=== PATIENT | female | born 2005 | race Caucasian/White ===

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

== ENCOUNTER 2023-08-15 13:28 | Outpatient (AMB) | payer OTHER, SELFPAY ==
--- NOTE | 2023-08-15 13:30 | MHC.PC.OV ---
Vital Signs 08/15/23 13:35 Height 5 ft 5 in Weight 144 lb 2 oz BMI 24.0 BP 122/78 Blood Pressure Location Rt brachial Position Sitting Pulse 105 H Pulse Source Pulse Oximeter Pulse Oximetry (%) 100 Oxygen Delivery Method Room Air Intake Visit Reasons: New patient-Requesting physical Allergies fentanyl Allergy (Intermediate, Verified 08/15/23 13:36) UNKNOWN Medication List - Last Reconciled 08/15/23 by Dominga Cottrell MD norgestimate-ethinyl estradiol 0.18/0.215/0.25 mg-35 mcg (28) (Tri-Sprintec (28)) 1 tab PO DAILY Tobacco use date assessed: 08/15/23 Dental Screening Dental Screen Date: 08/15/23 Did you have a dental visit in the last 12 months?: Yes Did you have a dental problem in the last 6 months where you did not have access to dental care?: No Was dental information given to patient?: Patient has dentist HPI New patient-Requesting physical HPI Details Patient physical exam Offer no complaints In need of new OBGYN, patient is taking control pills Does not want to do any labs, discussed side effect of control briefly it is recommended that we have baseline labs when patient is taking any medications Patient is afraid of needles and do not want any labs. Has developed small patch of rash right side of leg and left groin area 2 weeks ago which seems to be Wing and it is non pruritic. Patient says that she will get back to me if rash started to spread. We will prescribe Lotrisone cream if it did get better [facility] Social History Housing: Apartment Patient Tobacco Use Status: Never used Tobacco e-Cigarette/Vaping Use: Currently Using service: No Current occupational status: student Cognitive needs: No Hearing needs: No Vision needs: No Questionnaire PHQ-9 Over the last 2 weeks, how often have you been bothered by any of the following problems? 1. Little interest or pleasure in doing things: several days 2. Feeling down, depressed, or hopeless: not at all 3. Trouble falling or staying asleep, or sleeping too much: not at all 4. Feeling tired or having little energy: several days 5. Poor appetite or overeating: not at all 6. Feeling bad about yourself - or that you are a failure or have let yourself or your family down: not at all 7. Trouble concentrating on things, such as reading the newspaper or watching television: not at all 8. Moving or speaking so slowly that other people could have noticed. Or the opposite - being so fidgety or restless that you have been moving around a lot more than usual: not at all 9. Thoughts that you would be better off or of hurting yourself in some way: not at all Total score: 2 Depression Screening Interpretation: Negative Depression Screening Done: Yes 96774 - PHQ-9 Billing: Yes Source: Developed by Drs. Pierre Pérez, Shraddha Duran, Raúl Malave and colleagues, with an educational giles from [employer]. Thrive Questionnaire Date Thrive assessed: 08/15/23 I am a: Patient What is your living situation today?: I have a steady place to live Within the past 12 months, did the food you bought not last and you didn't have the money to get more?: Never true Within the past 12 months, did you worry whether your food would run out before you got money to buy more?: Never true Do you have trouble paying for medicines?: No Do you have trouble getting transportation to medical appointments?: No Do you have trouble paying your heating and electricity bill?: No Do you have trouble taking care of your child, family member or friend?: No Do you have trouble with day-to-day activities such as bathing, preparing meals, shopping, managing finances, etc.?: No Are you currently unemployed and looking for a job?: Yes Are you interested in more education?: Yes AUDIT C Alcohol Use Questionnaire (AUDIT-C) 1. How often do you have a drink containing alcohol?: Monthly or less 2. How many drinks containing alcohol do you have on a typical day when you are drinking?: 1 or 2 3. How often do you have six or more drinks on one occasion?: Never Total Score: 1 Score Reviewed/Action Taken: Yes FILIBERTO-7 AMB Questionnaire FIILBERTO-7 Date FILIBERTO - 7 assessed: 08/15/23 Feeling nervous, anxious, or on edge: 1 = Several days Not being able to stop or control worryin = Not at all Worrying too much about different things: 1 = Several days Trouble relaxin = Not at all Being so restless that it is hard to sit still: 0 = Not at all Becoming easily annoyed or irritable: 1 = Several days Feeling afraid as if something awful might happen: 0 = Not at all Total FILIBERTO-7 score (0-4 normal; 5-9 mild; 10-14 moderate; 15-21 severe): 3 Source: Developed by Drs. Pierre Pérez, Shraddha Duran, Raúl Malave and colleagues, with an educational giles from [employer]. FILIBERTO-7 Assessment Billing FILIBERTO-7 Assessment Tool: FILIBERTO-7 Assessment 81241 Review of Systems Const Denies chills, Denies fever(s) and Denies headache(s) Eyes Denies blurry vision ENT Denies headache(s), Denies nasal discharge, Denies nasal obstruction, Denies odynophagia and Denies sinus pain Card Denies chest pain at rest and Denies chest pain with activity Resp Denies cough and Denies hemoptysis GI Denies diarrhea, Denies odynophagia, Denies vomiting and Denies hematemesis Reports as per HPI Musc Denies abnormal gait Skin/Breast Reports as per HPI Neuro Denies Neuro-related abnormal movements, Denies Abnormal speech present, Denies abnormal gait, Denies headache(s) and Denies Sensory deficit (Neuro) Psych Denies mood swings and Denies paranoia Endo Reports as per HPI Abiodun/Lymph Reports as per HPI Aller/Immun Reports as per HPI Physical exam (Primary Care) Vital Signs: Last Vital Signs Pulse 105 H 08/15/23 13:35 BP 122/78 08/15/23 13:35 Pulse Ox 100 08/15/23 13:35 Oxygen Delivery Method Room Air 08/15/23 13:35 BMI result Body Mass Index 24.0 Tobacco/Smoking Status: Tobacco use Status Tobacco use date assessed 08/15/23 08/15/23 13:31 Patient Tobacco Use Status Never used Tobacco 08/15/23 13:38 e-Cigarette/Vaping Use Currently Using 08/15/23 13:38 PHQ-9: PHQ-9 Score PHQ-9: Total score 2 08/15/23 14:01 Depression Screening Interpretation: Negative Thrive Assessment: Date of Thrive Assessment Date Thrive assessed 08/15/23 08/15/23 14:01 Const General: cooperative, comfortable and no acute distress Orientation/consciousness: patient oriented x3 HENMT Head: Yes normocephalic and Yes atraumatic Eyes General: appearance normal, both eyes and all related structures Pupils: Equal, round and reactive pupils present EOM: EOMs intact bilaterally Neck Neck: Yes supple and No lymphadenopathy Thyroid: Thyroid normal Lymphatic: no lymphadenopathy noted Resp Effort & Inspection: normal respiratory effort and able to speak in complete sentences Auscultation: clear to auscultation bilaterally Cardio Heart sounds: S1 normal heart sound present and S2 normal heart sound present GI Palpation (GI): Soft to palpation and nontender Auscultation: normal bowel sounds General: Yes no CVA tenderness Back/Spine/Pelvis Back: no CVA tenderness Skin General skin exam: elasticity normal and turgor normal Full body images: 1. 1 in x 1 in patchy rash right side of thigh 2. 2 cm by 1 cm scaly rash left groin without any signs of infection or inflammation Neuro General: patient oriented x3 and gait normal Cranial nerves: Yes Equal, round and reactive pupils present Speech: No Abnormal speech present Sensory Exam: No Sensory deficit (Neuro) Coordination: tandem gait normal and Romberg test negative Extrem General: Yes normal exam except as noted and No edema Assessment and Plan Assessment & Plan (1) Encounter for general adult medical examination with abnormal findings: Code(s): Z00.01 - Encounter for general adult medical examination with abnormal findings (2) Rash: Code(s): R21 - Rash and other nonspecific skin eruption (3) Uses control: Code(s): Z78.9 - Other specified health status Orders: Referrals DEFECT CUTTER Referral Z01.419 - Encounter for gynecological examination (general) (routine) without abnormal findings, Z78.9 - Other specified health status Coding Level of Care Code New Pt Prev Care 18-39yr(55508 Diagnoses Encounter for general adult medical examination with abnormal findings Z00.01 Rash R21 Uses control Z78.9 Additional Codes FILIBERTO-7 Assessment Billing - FILIBERTO-7 Assessment Tool: FILIBERTO-7 Assessment [id number] ([id number])
[2023-08-15 13:35] VITALS: BP 122/78; PULSE 105; O2SAT 100; BMI 24.0
== END 2023-08-15 15:14 | disposition home or self-care (01) ==
PROVIDERS: Visit Provider Internal Medicine
DX: Z00.01 Encounter for general adult medical examination with abnormal findings (principal); R21 Rash and other nonspecific skin eruption; Z78.9 Other specified health status
CPT/HCPCS: 99385

== ENCOUNTER 2023-10-24 06:36 | Outpatient (REF) | payer OTHER, SELFPAY ==
[2023-10-24 06:56] LABS: MANUAL DIFF FLAG NO
[2023-10-24 06:59] LABS: Basophils Percent Auto 0.5 % (0-2); Eosinophils Absolute Auto 0.1 X10*3/uL (0.0-0.4); Eosinophils Percent Auto 1.9 % (0-4); Hematocrit 40.7 % (37.0-47.0); Hemoglobin 13.1 g/dl (12.0-16.0); Imm Gran Abs Auto 0.01 X10*3/uL (0.00-0.03); Imm Gran Pct Auto 0.1 % (0.0-0.4); Lymphocytes Absolute Auto 2.3 X10*3/uL (1.2-4.9); Lymphocytes Percent Auto 31.2 % (20-40); Mean Corpuscular HGB Conc 32.2 g/dl (31.0-35.0); Mean Corpuscular Hemoglobin 28.1 pg (27.0-33.0); Mean Corpuscular Volume 87.3 fL (80.0-98.0); Mean Platelet Volume 9.3 fL (9.4-12.3); Monocytes Absolute Auto 0.7 X10*3/uL (0.1-1.2); Monocytes Percent Auto 9.2 % (2-11); Neutrophils Absolute Auto 4.2 x10*3/uL (2.0-8.3); Neutrophils Percent Auto 57.1 % (45-73); Platelet Count 337 X10*3/uL (160-400); Red Blood Count 4.66 X10*6/uL (4.20-5.50); Red Cell Distribution Width 12.6 % (11.0-16.0); White Blood Count 7.4 X10*3/uL (4.8-10.8)
[2023-10-24 07:19] LABS: Alanine Aminotransferase 27 U/L (0-31); Albumin Level 4.4 g/dL (3.5-5.0); Alkaline Phosphatase 73 U/L (39-117); Anion Gap 16 (12-20); Aspartate Amino Transferase 19 U/L (5-31); Bilirubin Total 0.3 mg/dL (0.0-1.0); Blood Urea Nitrogen 15 mg/dL (9-16); Calcium 9.9 mg/dL (8.4-10.2); Carbon Dioxide 26 mmol/L (22-29); Chloride 107 mmol/L (96-108); Estimated Glomerular Filt Rate > 60; Glucose Random 90 mg/dL (60-115); Potassium 4.6 mmol/L (3.3-5.1); Sodium 144 mmol/L (135-145); Total Protein 7.9 g/dL (6.5-8.0)
== END 2023-10-24 06:37 | disposition home or self-care (01) ==
LOC: HO.LAB 06:36
PROVIDERS: PCP Internal Medicine; Visit Provider Internal Medicine
DX: Z78.9 Other specified health status (principal)
CPT/HCPCS: 36415; 80053; 85025

== ENCOUNTER 2024-02-02 14:51 | Outpatient (AMB) | payer OTHER, SELFPAY ==
[2024-02-02 15:01] VITALS: BP 112/74; BMI 23.8
--- NOTE | 2024-02-02 15:01 | MHC.OFFVIS ---
Intake Vital Signs 02/02/24 15:01 Height 5 ft 5 in Weight 143 lb BMI 23.8 BP 112/74 Intake Visit Reasons: New patient Annual Intake Note: Dr. Cottrell doesn't want to prescribe BC pills and referred patient to us to keep refilling. Patient states she doesn't need any STD testing she states she had STD testing at her school since they have a clinic accessible to students. Manager Audit Required: No Information Interpreted: non-clinical & clinical Garbage Collector Supervisor: Garbage Collector Supervisor Present (Rolly) Allergies fentanyl Allergy (Intermediate, Verified 02/02/24 15:03) UNKNOWN Medication List - Last Reconciled 02/02/24 by Shannon Leal CNM norgestimate-ethinyl estradiol 0.18/0.215/0.25 mg-35 mcg (28) (Tri-Sprintec (28)) 1 tab PO DAILY Is last menstrual period known: Yes Last menstrual period: 01/25/24 Post menopausal: No HPI New patient Annual HPI Details Patient is here scheduled for her 1st safety equipment testing specialist annual exam however she did not quite realize that it was a safety equipment testing specialist annual exam and she is nervous and does not think she needs an exam. She says she got tested at her school at [facility] just 2 weeks ago for gonorrhea and chlamydia and other things. She started on control pills when she was 13 years old at [facility] Dr. Petty Young. She is not sure about what vaccine she had says her mother has all those records but she does know on questioning that she did get the sex disease vaccine. She has 1 partner she alluded to the fact that she does not always use condoms. She does vape but she is trying to quit. She feels she is healthy otherwise and does not feel she needs an exam today. [facility] Surgical History (Updated 02/02/24 @ 15:04 by ROSALIA Petersen) Hx of heart surgery Social History Housing: Apartment Patient Tobacco Use Status: Never used Tobacco e-Cigarette/Vaping Use: Currently Using service: No Current occupational status: student Cognitive needs: No Hearing needs: No Vision needs: No Female Reproductive History Menstrual Age of Menarche: 11 Duration of menses: 3-5 days Date of last menstrual period: 01/25/24 control method: pills Total pregnancies: 0 Physical Exam Vital Signs: BMI result Body Mass Index 23.8 Const Other: Deferred as patient feels she does not need 1 today and has no health concerns today she just wants her control pills. Education done about what to expect that her next and 1st safety equipment testing specialist exam and Pap smear after she turns 19. Assessment & Plan Assessment & Plan (1) Uses control: Code(s): Z78.9 - Other specified health status (2) Well woman exam (no gynecological exam): Comment: Full teaching about self-care control pills STI eyes and prevention done at this visit including what to expect a future safety equipment testing specialist exam and 1st Pap smear next year. Code(s): Z00.00 - Encounter for general adult medical examination without abnormal findings (3) BCP ( control pills) initiation: Comment: Actually it is a continuation of her pills that she has been on per her conservation science teacher and then primary care provider we will continue the prescription from here with three-month refills for year. Code(s): Z30.011 - Encounter for initial prescription of contraceptive pills (4) Cervical cancer screening: Comment: We will be due for her 1st Pap smear after she turns 19 pelvic exam deferred to then. Patient believes she had the Gardasil series at [facility]. Code(s): Z12.4 - Encounter for screening for malignant neoplasm of cervix Plan -----Discussed in this visit the following: healthy balanced diet, regular and consistent exercise, getting recommended health screens, doing the best she can for her particular health concerns, kegel exercises, pap smear screening and followup recommendations, mammography screening and SBE, normal changes in cycles in her life stage--- . Reviewed full teaching for her life stage including that her 1st Pap smear will be next year after she turns 19 but that any time she is concerned about infection or discharge that would be a time to have a vaginal exam but she can deferred if she has no concerns she has gotten tested for STDs at her college as recently as 2 weeks ago and says everything was good I reviewed other testing for STIs that are commonly tested for as well as prevention with safer sex and discussed strategies for having her partner use condoms including can use the excuse of a missed pill certainly it would be good to use condoms if she ever does thinks she misses a pill and certainly absolutely if she missed 2 pills in a row. She used to have to get the per pills every month at her pharmacy but recently it was 3 months and that is much preferable will absolutely send the prescription for 3 month supply at a time with 4 refills. She can not always get home from [place] to apple picker the prescriptions and that has sometimes caused her to run out of pills in the past. In addition teaching done and discussed about HPV virus and Pap smear testing Also discussed the control pills and that all is not yet known about what ever it may be in vape canisters at this time and can not tell what risks there would be compared to smoking but I do recommend stopping if she can and perhaps she will have stop by the next time she comes in discussed the risks of blood clots and signs and symptoms and what to do if that ever happened. Also she goes to the gym every day and she tries to eat well and maintain good health.. Medications: Refilled norgestimate-ethinyl estradiol 0.18/0.215/0.25 mg-35 mcg (28) (Tri-Sprintec (28)) 1 tab PO DAILY 84 tabs 4RF Coding Level of Care Code New Pt Prev Care 18-39yr(23276 Diagnoses Uses control Z78.9 Well woman exam (no gynecological exam) Z00.00 BCP ( control pills) initiation Z30.011 Cervical cancer screening Z12.4
== END 2024-02-02 17:01 | disposition home or self-care (01) ==
PROVIDERS: PCP Internal Medicine; Visit Provider Advanced Practice Midwife
DX: Z01.419 Encounter for gynecological examination (general) (routine) without abnormal findings (principal)
CPT/HCPCS: 99385

== ENCOUNTER → 2024-02-02 14:51 | Outpatient (BNVA) | payer OTHER, SELFPAY | PROVIDERS: PCP Internal Medicine; Visit Provider Advanced Practice Midwife ==

== ENCOUNTER 2024-12-19 11:16 | Outpatient (REF) | payer OTHER, SELFPAY ==
--- OUTSIDE RECORDS SUMMARY | 2024-12-19 14:40 | XMS_ITS | Encounter Summary ---
Author Organization [facility] Address [address] [place] [address] Phone Care Team Providers Care Boot Trimmer Name Role Phone Ankita Juárez MD Primary Care Provider [phone]- [phone] Reason for Visit * Reason Comments Med Refill Encounter Details Date Type Department Care Team (Late st Contact Info) Description 03/18/2022 Refill [facility] [place] [address] [place] [address] Ankita Juárez MD [address] [place] [address] Oral contraceptive pill surveillance Social History Tobacco [...] OCPs, but encouraged her to establish with PERSONAL FINANCIAL COUNSELOR. I called pharmacy who reports that pt [...] surveillance documented in this encounter Care Teams Boot Trimmer Relationship Specialty Start Date End Date Ankita Juárez MD [address] [place] [address] [place] [address] PCP - General Pediatrics 05/06/18 08/28/23 documented as of this encounter
--- OUTSIDE RECORDS SUMMARY | 2024-12-19 14:40 | XMS_ITS | Encounter Summary ---
Author Organization [facility] Address [address] [place] [address] Phone Care Team Providers Care Motor Adjuster Name Role Phone Ankita Juárez MD Primary Care Provider [phone]- [phone] Reason for Visit * Reason Comments Med Refill Encounter Details Date Type Department Care Team (Late st Contact Info) Description 01/22/2021 Refill [facility] [place] [address] [place] [address] Ankita Juárez MD [address] [place] [address] Oral contraceptive pill surveillance Social History Tobacco [...] surveillance documented in this encounter Care Teams Motor Adjuster Relationship Specialty Start Date End Date Ankita Juárez MD [address] [place] [address] [place] [address] PCP - General Pediatrics 05/06/18 08/28/23 documented as of this encounter
--- OUTSIDE RECORDS SUMMARY | 2024-12-19 14:40 | XMS_ITS | Encounter Summary ---
Author Organization [facility] Address [address] [place] [address] Phone Care Team Providers Care Balancer Scale Name Role Phone Ankita Juárez MD Primary Care Provider +1- [phone] Reason for Visit * Reason Comments Med Refill Encounter Details Date Type Department Care Team (Late st Contact Info) Description 06/05/2022 Refill [facility] - [address] [address] Yesika Ann NP Oral contraceptive pill surveillance [...] surveillance documented in this encounter Care Teams Balancer Scale Relationship Specialty Start Date End Date Ankita Juárez MD 150 [facility] [place] [address] PCP - General Pediatrics 05/06/18 08/28/23 documented as of this encounter
--- OUTSIDE RECORDS SUMMARY | 2024-12-19 14:40 | XMS_ITS | Encounter Summary ---
Author Organization [facility] Address [address] [place] [address] Phone Care Team Providers Care Claim Representative Name Role Phone Ankita Juárez MD Primary Care Provider [phone] Encounter Details Date Type Department Care Team (Late st Contact Info) Description 06/04/2013 Documentation [facility] [place] [address] [place] [address] Family Medicine, Physician [address] [place] [address] Social History Tobacco Use Types Packs/Day Years [...] on filedocumented in this encounter Care Teams Claim Representative Relationship Specialty Start Date End Date Ankita Juárez MD 150 [place] [address] PCP - General Pediatrics 05/06/18 08/28/23 documented as of this encounter
--- OUTSIDE RECORDS SUMMARY | 2024-12-19 14:40 | XMS_ITS | Encounter Summary ---
Author Organization [facility] Address [address] [place] [address] Phone Care Team Providers Care Fan Balancer Name Role Phone Ankita Juárez MD Primary Care Provider [phone]- [phone] Reason for Visit * Reason Comments Med Refill Encounter Details Date Type Department Care Team (Late st Contact Info) Description 04/15/2021 Refill [facility] [place] [address] [place] [address] Lorraine Gee MD [address] [place] [address] Oral contraceptive pill surveillance Social History Tobacco [...] 10:54 AM EDT Script sent. Had recent [facility]. PPP * Telephone Encounter - Sonido Dorado LPN - 04/15/2021 10:19 AM EDT [facility] is requesting a refill on control. Last PE was 02/11/21 documented in this encounter Plan of Treatment Not on file documented as of this encounter Visit Diagnoses Diagnosis Oral contraceptive pill surveillance documented in this encounter Care Teams Fan Balancer Relationship Specialty Start Date End Date Ankita Juárez MD [address] [place] [address] [place] [address] PCP - General Pediatrics 05/06/18 08/28/23 documented as of this encounter
--- OUTSIDE RECORDS SUMMARY | 2024-12-19 14:40 | XMS_ITS | Encounter Summary ---
Author Organization [facility] Address [address] [place] [address] Phone Care Team Providers Care Residential Substance Abuse Counselor Name Role Phone Ankita Juárez MD Primary Care Provider [phone] Reason for Visit * Reason Comments Med Refill Encounter Details Date Type Department Care Team (Late st Contact Info) Description 02/19/2020 Refill [facility] [place] [address] [place] [address] Ankita Juárez MD [address] [place] [address] Oral contraceptive pill surveillance Social History Tobacco [...] surveillance documented in this encounter Care Teams Residential Substance Abuse Counselor Relationship Specialty Start Date End Date Ankita Juárez MD [address] [place] [address] [place] [address] PCP - General Pediatrics 05/06/18 08/28/23 documented as of this encounter
--- OUTSIDE RECORDS SUMMARY | 2024-12-19 14:40 | XMS_ITS | Encounter Summary ---
Author Organization [facility] Address [address] [place] [phone] Phone Care Team Providers Care Launch Engineer Name Role Phone Ankita Juárez MD Primary Care Provider [phone] Encounter Details Date Type Department Care Team (Late st Contact Info) Description 11/21/2010 Documentation [facility] [place] Family Medicine [address] [place] [address] Family Medicine, Physician [address] [place], [place] [id number] Social History Tobacco Use Types Packs/Day Years [...] on filedocumented in this encounter Care Teams Launch Engineer Relationship Specialty Start Date End Date Ankita Juárez MD [address] [facility] [place] [address] PCP - General Pediatrics 05/06/18 08/28/23 documented as of this encounter
--- OUTSIDE RECORDS SUMMARY | 2024-12-19 14:40 | XMS_ITS | Encounter Summary ---
Author Organization [facility] Address [address] [place] [phone] Phone Care Team Providers Care Wire Wrapping Machine Operator Name Role Phone Ankita Juárez MD Primary Care Provider Encounter Details Date Type Department Care Team (Late st Contact Info) Description 10/04/2011 Documentation [facility] [place] Family Medicine [address] [place] [address] Family Medicine, Physician [address] [place], [place] [address] Social History Tobacco Use Types Packs/Day Years [...] on filedocumented in this encounter Care Teams Wire Wrapping Machine Operator Relationship Specialty Start Date End Date Ankita Juárez MD [address] [place] [address] PCP - General Pediatrics 05/06/18 08/28/23 documented as of this encounter
--- OUTSIDE RECORDS SUMMARY | 2024-12-19 14:41 | XMS_ITS | Encounter Summary ---
Author Organization [facility] Address [address] [place] [address] Phone Care Team Providers Care Groover Runner Name Role Phone Ankita Juárez MD Primary Care Provider Encounter Details Date Type Department Care Team (Late st Contact Info) Description 06/22/2017 Conversion Encounter [facility] [place] [address] [place], [place] [id number] Social History Tobacco Use Types Packs/Day Years [...] on filedocumented in this encounter Care Teams Groover Runner Relationship Specialty Start Date End Date Ankita Juárez MD [address] [place] [address] PCP - General Pediatrics 05/06/18 08/28/23 documented as of this encounter
--- OUTSIDE RECORDS SUMMARY | 2024-12-19 14:41 | XMS_ITS | Clinical Summary ---
Author Organization [facility] Address [address] [place] [phone] Phone Care Team Providers Care Computer Applications Engineer Name Role Phone Unavailable Primary Care Provider [...] Elevated cholesterol, No family history of Sudden /[place] under age 55 Sister Ben (twin) Alive [...] Completed 02/08/2022, 02/11/2021 Procedures * Due to [place] [employer] law, this organization might not be sharing sensitive test results. Procedure Name Priority Date/Time Associated Diagnosis Comments CHLAMYDIA AND GONORRHEA, AMPLIFIED Routine 02/08/2022 10:45 AM EDT Encounter for screening examination for chlamydial infection from Last 3 Months or Most Recently Relevant to Health Maintenance Results * Due to [place] [employer] law, this organization might not be sharing sensitive test results. * Chlamydia and Gonorrhoea, Amplified (02/08/2022 10:45 AM EDT) Chlamydia Trachomatis, DNA Probe NEGATIVE (NEG) [facility] Comment: No Chlamydia Trachomatis RNA detected in this patient's sample ? (REFERENCE RANGE/NORMAL VALUE: NOT DETECTED) ? Note: This test uses braider setter- mediated amplification method to detect rRNA from C. Trachomatis URINE GC AMP PROBE NEGATIVE (NEG) [facility] Comment: No Neisseria Gonorrhoeae RNA detected in this patient's sample ? (REFERENCE RANGE/NORMAL VALUE: NOT DETECTED) ? NOTE: This test uses braider setter-mediated amplification method to detect rRNA from N.Gonorrhoeae. [...] without risk of sexual abuse. Consult the [facility] if needed. Contact phone number . Therapeutic failure or success cannot be determined with the Aptima Combo2 assay since nucleic acid may persist following appropriate antimicrobial therapy. The Centers for Disease Control and Prevention (CDC) recommends confirmatory retesting using culture or a different nucleic acid amplification test when positive results occur, if indicated. Testing performed or reported by [facility], a Service of [facility], [facility] [address] Newton Chavez MD, [employer] Former [facility]# [id number] Urine (Urine) 02/08/2022 10: 45 AM EDT 02/08/2022 3:58 PM EDT us Ankita Juárez MD LAB MICROBIOLOGY - GENERAL ORDERABLES Final Result [facility] from Last 3 Months or Most Recently Relevant to Health Maintenance
[2024-12-20 11:32] LABS: Bacterial Vaginosis PCR POSITIVE (Negative); Candida Group PCR NOT DETECTED (Not Detect); Candida glab krusei PCR NOT DETECTED (Not Detect); Trichomonas vaginalis PCR NOT DETECTED (Not Detect)
[2024-12-20 15:04] LABS: CT PCR NOT DETECTED (Not Detect.); NG PCR NOT DETECTED (Not Detect.)
== END 2024-12-19 11:17 | disposition home or self-care (01) ==
LOC: HO.LAB 11:16
PROVIDERS: PCP Internal Medicine; Visit Provider Advanced Practice Midwife
DX: N89.8 Other specified noninflammatory disorders of vagina (principal); Z20.2 Contact with and (suspected) exposure to infections with a predominantly sexual mode of transmission
CPT/HCPCS: 81515; 87491; 87591

== ENCOUNTER 2024-12-19 11:16 | Outpatient (AMB) | payer OTHER, SELFPAY ==
[2024-12-19 11:20] VITALS: BP 100/60; BMI 23.8
--- NOTE | 2024-12-19 11:20 | A.OFFVIS_ITS ---
Vital Signs 12/19/24 11:20 Height 5 ft 5 in Weight 143 lb BMI 23.8 BP 100/60 Intake Visit Reasons: BV ? Financial Reporting Specialist Required: No Financial Reporting Specialist Services: Financial Reporting Specialist Present Information Interpreted: clinical only Voucher Clerk: Voucher Clerk Present Allergies fentanyl Allergy (Intermediate, Verified 12/19/24 11:21) UNKNOWN Medication List - Last Reconciled 12/19/24 by Shannon Leal CNM norgestimate-ethinyl estradiol 0.18/0.215/0.25 mg-35 mcg (28) (Tri-Sprintec (28)) 1 tab PO DAILY Is last menstrual period known: Yes Last menstrual period: 12/05/24 HPI HPI BV ?: Details: Patient is here because she believes she has BV she has a liquidy kind of a discharge that is kind of white. She says sometimes it gets fishy smelling Stinky after her period. Not every time.. She says she thinks it is BV as a feels exactly the same as what she has had before that was diagnosed at clinic at [facility] with just a swab. She is sexually active with her boyfriend sometimes they use condoms. Sometimes she is late pills I reinforced that she really does not to use condoms especiall y if she is with her pills. She says she has month less done her prescription her appointment me for her 1st annual exam Pap smear is in February of this year. [facility] Surgical History Hx of heart surgery Social History Housing: Apartment Patient Tobacco Use Status: Never used Tobacco e-Cigarette/Vaping Use: Currently Using service: No Current occupational status: student Cognitive needs: No Hearing needs: No Vision needs: No Female Reproductive History Menstrual Age of Menarche: 11 Duration of menses: 3-5 days Date of last menstrual period: 12/05/24 control method: pills Total pregnancies: 0 Full term: 0 Physical Exam Vital Signs: Last Vital Signs BP 100/60 12/19/24 11:20 BMI result Body Mass Index 23.8 Other: Normal speculum exam vagina pink there was a whitish adherent discharge that could be consistent with bacterial vaginosis. Cervix nulliparous pink and smooth bimanual not done. External Female Exam: normal external appearance and normal appearance of the urethra Speculum Exam - Vagina: normal appearance of the vagina and normal vaginal disc harge Speculum Exam - Cervix: normal appearance of the cervix and Cervical os closed Assessment & Plan Assessment & Plan (1) Uses control: Code(s): Z78.9 - Other specified health status Category: Social Hx (2) Bacterial vaginosis: Code(s): N76.0 - Acute vaginitis; B96.89 - Other specified bacterial agents as the cause of diseases classified elsewhere Category: Medical (3) control counseling: Code(s): Z30.09 - Encounter for other general counseling and advice on contraception Category: Medical Plan Patient is here because she believes she has BV she has a liquidy kind of a discharge that is kind of white. She says sometimes it gets fishy smelling Stinky after her period. Not every time.. She says she thinks it is BV as a feels exactly the same as what she has had before that was diagnosed at clinic at [facility] with just a swab. She is sexually active with her boyfriend sometimes they use condoms. Sometimes she is late pills I reinforced that she really does not to use condoms especially if she is with her pills. She says she has month less done her prescription her appointment me for her 1st annual exam Pap smear is in February of this year. First speculum exam done today in order to do the testing for STDs and BV. A lot of Education was done around the over diagnosis of bacterial vaginosis and the Gardnerella is in fact common bacteria in her vagina as part of are normal esmer and it only needs to be treated when there is an overgrowth and there were symptoms consistent with bacterial vaginosis that include a clingy discharge adherent to the vaginal tarango with a fishy odor. Discussed that the testing is overly sensitive simply is testing for the presence of Gardnerella bacteria and not the syndrome with bacterial vaginosis. Nevertheless her discharge was white and somewhat adherent to the vaginal tarango so it certainly is consistent with bacterial vaginosis today I prescribing Metrogel vaginal gel for her to use daily for 5 days and I am prescribing 1 refill for her with the promised that she will not over use it. Additionally I am refilling her control pills because I do not want her to run out before her 1st annual exam in February. She did well with her 1st speculum using I explained what else we will do with the Pap smear next time. She transferred from [facility] to [facility] for [employer] for money saving reasons. Medications: New metronidazole 0.75%(37.5mg/5gram) 1 appful vaginal BID 5 days 70 grams 1RF Refilled norgestimate-ethinyl estradiol 0.18/0.215/0.25 mg-35 mcg (28) (Tri-Sprintec (28)) 1 tab PO DAILY 84 tabs 4RF Coding Level of Care Code Est Pt Level 3 (94857) Diagnoses Uses control Z78.9 Bacterial vaginosis N76.0; B96.89 control counseling Z30.09 Time Spent (min) 25 Comment Patient's 1st pelvic and more time spent on teaching.
--- OUTSIDE RECORDS SUMMARY | 2024-12-19 11:53 | XMS_ITS | Encounter Summary ---
Author Organization [facility] Address [address] [place] [address] Phone Care Team Providers Care Restaurant Cook Name Role Phone Ankita Juárez MD Primary Care Provider [phone] Reason for Visit * Reason Comments Med Refill Encounter Details Date Type Department Care Team (Late st Contact Info) Description 01/22/2021 Refill [facility] [place] [address] [place] [address] Ankita Juárez MD [address] [place] [address] Oral contraceptive pill surveillance Social History Tobacco Use Types Packs/Day Years Used Date Smoking Tobacco: Never Smokeless Tobacco: Never Alcohol Use Standard Drinks/Week Comments No 0 (1 standard drink = 0.6 oz pur e alcohol) Hunger/Food Answer Date Recorded In the last 12 months, did y ou or your family ever eat less than you felt you should because there wasn't enough money for food? No 01/08/2020 Stable Housing Answer Date Recorded Are you worried that in the next 2 months you may not have stable housing? No 01/08/2020 Transportation Concerns Answer Date Rec orded In the last 12 months, have you or your family ever had to go without healthcare because you didn't have a way to get there? No 01/08/2020 Hazards in Home Answer Date Recorded Think about the place you li ve. Do you have problems with any of the following? Pests (mice or roaches), mold, no/not working smoke detectors, water leaks, no window guards. No 2019 Financing Utilities Answer Date Recorde d In the last 12 months, has t he electric, gas, oil, or water company threatened to shut off your services in your home? No 01/08/2020 Safety at Home Answer Date Recorded Are you or your family worried about feeling saf e in your home? No 01/08/2020 Outside Support Answer Date Recorded Do you feel that you need mo re support from other people or programs to help you care for yourself or your family? No 01/08/2020 Understanding Health Concerns Answer Da te Recorded Do you need help understandi ng your or your child's healthcare needs (diagnosis, medications, plan, etc.)? No 01/08/2020 Financing Health Concerns Answer Date R ecorded In the last 12 months, was t here a time when your child needed to see a doctor or get medications or supplies but could not because of cost? No 01/08/2020 Missing School or Work Answer Date Carlos rded Did you or your child miss s chool or work because of a health problem that could have been avoided? No 01/08/2020 Comments No Sex and Gender Information Value Date Recorded Sex Assigned at Not on file Legal Sex Female 4:54 PM EDT Gender Identity Not on file Sexual Orientation Bisexual 02/08/2022 11 :17 AM EDT documented as of this encounter Miscellaneous Notes * Telephone Encounter - Lorraine Gee MD - 01/22/2021 8:54 AM EDT Renewed x 1 (3 mo supply), no refills. Has upcoming PE. * Telephone Encounter - Sonido Dorado LPN - 01/22/2021 8:44 AM EDT [facility] is requesting a refill on control. Pt has a PE on 02/11/21 documented in this encounter Plan of Treatment Not on file documented as of this encounter Visit Diagnoses Diagnosis Oral contraceptive pill surveillance documented in this encounter Care Teams Restaurant Cook Relationship Specialty Start Date End Date Ankita Juárez MD [address] [place] [address] LYNNE Sanches [id number] PCP - General Pediatrics 05/06/18 08/28/23 documented as of this encounter
--- OUTSIDE RECORDS SUMMARY | 2024-12-19 11:53 | XMS_ITS | Encounter Summary ---
Author Organization [facility] Address [address] [place] [address] Phone Care Team Providers Care Can Closing Machine Operator Name Role Phone Ankita Juárez MD Primary Care Provider [phone]- [phone] Reason for Visit * Reason Comments Med Refill Encounter Details Date Type Department Care Team (Late st Contact Info) Description 02/19/2020 Refill [facility] [place] [address] [place] [address] Ankita Juárez MD [address] [place] [address] Oral contraceptive pill surveillance Social History Tobacco [...] AM EDT documented as of this encounter Plan of Treatment Not on file documented as of this encounter Visit Diagnoses Diagnosis Oral contraceptive pill surveillance documented in this encounter Care Teams Can Closing Machine Operator Relationship Specialty Start Date End Date Ankita Juárez MD [address] [place] [address] LYNNE Sanches [id number] PCP - General Pediatrics 05/06/18 08/28/23 documented as of this encounter
--- OUTSIDE RECORDS SUMMARY | 2024-12-19 11:53 | XMS_ITS | Encounter Summary ---
Author Organization [facility] Address [address] [place] [address] Phone Care Team Providers Care Licensed Land Surveyor Name Role Phone Ankita Juárez MD Primary Care Provider Encounter Details Date Type Department Care Team (Late st Contact Info) Description 11/21/2010 Documentation [facility] [place] Family Medicine [address] [place] [address] Family Medicine, Physician [address] [place], [place] [address] Social History Tobacco Use Types Packs/Day Years Used Date Smoking Tobacco: Never Assessed Comments Unknown Sex and Gender Information Value Date Recorded Sex Assigned at Not on file Legal Sex Female 4:54 PM EDT Gender Identity Not on file Sexual Orientation Bisexual 02/08/2022 11 :17 AM EDT documented as of this encounter Plan of Treatment Not on file documented as of this encounter Visit Diagnoses Not on filedocumented in this encounter Care Teams Licensed Land Surveyor Relationship Specialty Start Date End Date Ankita Juárez MD 150 [facility] [place] [address] PCP - General Pediatrics 05/06/18 08/28/23 documented as of this encounter
--- OUTSIDE RECORDS SUMMARY | 2024-12-19 11:53 | XMS_ITS | Encounter Summary ---
Author Organization [facility] Address [address] [place] [address] Phone Care Team Providers Care Lump Receiver Name Role Phone Ankita Juárez MD Primary Care Provider +1- [phone] Reason for Visit * Reason Comments Med Refill Encounter Details Date Type Department Care Team (Late st Contact Info) Description 04/15/2021 Refill [facility] [place] [address] [place] [address] Lorraine Gee MD [address] [place] [address] Oral contraceptive pill surveillance Social History Tobacco [...] there wasn't enough money for food? No 02/11/2021 Stable Housing Answer Date Recorded Are you worried that in the next 2 months you may not have stable housing? No 02/11/2021 Transportation Concerns Answer Date Rec orded In the last 12 months, have you or your family ever had to go without healthcare because you didn't have a way to get there? No 02/11/2021 Hazards in Home Answer Date Recorded Think about the place you li ve. Do you have problems with any of the following? Pests (mice or roaches), mold, no/not working smoke detectors, water leaks, no window guards. No 2020 Financing Utilities Answer Date Recorde d In the last 12 months, has t he electric, gas, oil, or water company threatened to shut off your services in your home? No 02/11/2021 Safety at Home Answer Date Recorded Are you or your family worried about feeling saf e in your home? No 02/11/2021 Outside Support Answer Date Recorded Do you feel that you need mo re support from other people or programs to help you care for yourself or your family? No 02/11/2021 Understanding Health Concerns Answer Da te Recorded Do you need help understandi ng your or your child's healthcare needs (diagnosis, medications, plan, etc.)? No 02/11/2021 Financing Health Concerns Answer Date R ecorded In the last 12 months, was t here a time when your child needed to see a doctor or get medications or supplies but could not because of cost? No 02/11/2021 Missing School or Work Answer Date Carlos rded Did you or your child miss s chool or work because of a health problem that could have been avoided? No 02/11/2021 Comments No Sex and Gender Information Value Date Recorded Sex Assigned at Not on file Legal Sex Female 4:54 PM EDT Gender Identity Not on file Sexual Orientation Bisexual 02/08/2022 11 :17 AM EDT documented as of this encounter Miscellaneous Notes * Telephone Encounter - Ankita Juárez MD - 04/15/2021 10:54 AM EDT Script sent. Had recent [facility]. PPP * Telephone Encounter - Sonido Dorado LPN - 04/15/2021 10:19 AM EDT [facility] is requesting a refill on control. Last PE was 02/11/21 documented in this encounter Plan of Treatment Not on file documented as of this encounter Visit Diagnoses Diagnosis Oral contraceptive pill surveillance documented in this encounter Care Teams Lump Receiver Relationship Specialty Start Date End Date Ankita Juárez MD [address] [place] [address] [place] [address] PCP - General Pediatrics 05/06/18 08/28/23 documented as of this encounter
--- OUTSIDE RECORDS SUMMARY | 2024-12-19 11:53 | XMS_ITS | Encounter Summary ---
Author Organization [facility] Address [address] [place] [address] Phone Care Team Providers Care Upsetting Machine Operator Name Role Phone Ankita Juárez MD Primary Care Provider Encounter Details Date Type Department Care Team (Late st Contact Info) Description 10/04/2011 Documentation [facility] [place] Family Medicine [address] [place] [address] Family Medicine, Physician [address] [place], [place] [address] Social History Tobacco Use Types Packs/Day Years [...] on filedocumented in this encounter Care Teams Upsetting Machine Operator Relationship Specialty Start Date End Date Ankita Juárez MD 150 [facility] [place] [place] [address] PCP - General Pediatrics 05/06/18 08/28/23 documented as of this encounter
--- OUTSIDE RECORDS SUMMARY | 2024-12-19 11:53 | XMS_ITS | Encounter Summary ---
Author Organization [facility] Address [address] [place] [address] Phone Care Team Providers Care Truck Operator Name Role Phone Ankita Juárez MD Primary Care Provider Encounter Details Date Type Department Care Team (Late st Contact Info) Description 06/04/2013 Documentation [facility] [place] Family Medicine [address] [place] [address] Family Medicine, Physician [address] [place] [address] Social History Tobacco Use Types Packs/Day Years [...] on filedocumented in this encounter Care Teams Truck Operator Relationship Specialty Start Date End Date Ankita Juárez MD 150 [facility] [place] [address] PCP - General Pediatrics 05/06/18 08/28/23 documented as of this encounter
--- OUTSIDE RECORDS SUMMARY | 2024-12-19 11:54 | XMS_ITS | Encounter Summary ---
Author Organization [facility] Address [address] [place] [address] Phone Care Team Providers Care Tile Decorator Name Role Phone Ankita Juárez MD Primary Care Provider +1- [phone] Reason for Visit * Reason Comments Med Refill Encounter Details Date Type Department Care Team (Late st Contact Info) Description 06/05/2022 Refill [facility] - [address] [address] Yesika Ann NP Oral contraceptive pill surveillance Social History Tobacco [...] there wasn't enough money for food? No 02/08/2022 Stable Housing Answer Date Recorded Are you worried that in the next 2 months you may not have stable housing? No 02/08/2022 Transportation Concerns Answer Date Rec orded In the last 12 months, have you or your family ever had to go without healthcare because you didn't have a way to get there? No 02/08/2022 Hazards in Home Answer Date Recorded Think about the place you li ve. Do you have problems with any of the following? Pests (mice or roaches), mold, no/not working smoke detectors, water leaks, no window guards. No 2021 Financing Utilities Answer Date Recorde d In the last 12 months, has t he electric, gas, oil, or water company threatened to shut off your services in your home? No 02/08/2022 Safety at Home Answer Date Recorded Are you or your family worried about feeling saf e in your home? No 02/08/2022 Outside Support Answer Date Recorded Do you feel that you need mo re support from other people or programs to help you care for yourself or your family? No 02/08/2022 Understanding Health Concerns Answer Da te Recorded Do you need help understandi ng your or your child's healthcare needs (diagnosis, medications, plan, etc.)? No 02/08/2022 Financing Health Concerns Answer Date R ecorded In the last 12 months, was t here a time when your child needed to see a doctor or get medications or supplies but could not because of cost? No 02/08/2022 Missing School or Work Answer Date Carlos rded Did you or your child miss s chool or work because of a health problem that could have been avoided? No 02/08/2022 Comments No Sex and Gender Information Value Date Recorded Sex Assigned at Not on file Legal Sex Female 4:54 PM EDT Gender Identity Not on file Sexual Orientation Bisexual 02/08/2022 11 :17 AM EDT documented as of this encounter Miscellaneous Notes * Telephone Encounter - Ankita Juárez MD - 06/07/2022 8:01 AM EDT Script sent. PPP * Telephone Encounter - Sonido Dorado LPN - 06/07/2022 7:56 AM EDT This is for control. My apologies. * Telephone Encounter - Ankita Juárez MD - 06/06/2022 5:49 PM EDT Sonido - can you check this? I'm not sure what med she needs? I don't have Famotidine on her med list. PPP * Telephone Encounter - Sonido Dorado LPN - 06/06/2022 9:47 AM EDT [facility] is requesting a refill on famotidine. Last PE was 02/08/22. documented in this encounter Plan of Treatment Not on file documented as of this encounter Visit Diagnoses Diagnosis Oral contraceptive pill surveillance documented in this encounter Care Teams Tile Decorator Relationship Specialty Start Date End Date Ankita Juárez MD 150 [facility] [place] [address] PCP - General Pediatrics 05/06/18 08/28/23 documented as of this encounter
--- OUTSIDE RECORDS SUMMARY | 2024-12-19 11:54 | XMS_ITS | Encounter Summary ---
Author Organization [facility] Address [address] [place] [address] Phone Care Team Providers Care Registered Route Associate Name Role Phone Anktia Juárez MD Primary Care Provider Encounter Details Date Type Department Care Team (Late st Contact Info) Description 06/22/2017 Conversion Encounter [facility] [place] [address] [place], [place] [id number] Social History Tobacco Use Types Packs/Day Years [...] on filedocumented in this encounter Care Teams Registered Route Associate Relationship Specialty Start Date End Date Anikta Juárez MD [address] [place] [address] PCP - General Pediatrics 05/06/18 08/28/23 documented as of this encounter
--- OUTSIDE RECORDS SUMMARY | 2024-12-19 11:54 | XMS_ITS | Encounter Summary ---
Author Organization [facility] Address [address] [place] [address] Phone Care Team Providers Care Blurb Writer Name Role Phone Ankita Juárez MD Primary Care Provider [phone]- [phone] Reason for Visit * Reason Comments Med Refill Encounter Details Date Type Department Care Team (Late st Contact Info) Description 03/18/2022 Refill [facility] [place] [address] [place] [address] Ankita Juárez MD [address] [place] [address] Oral contraceptive pill surveillance Social History Tobacco [...] encounter Miscellaneous Notes * Telephone Encounter - Yesika Ann NP - 03/18/2022 7:50 PM EDT It looked like Dr. Juárez saw her for PE and didn't discuss the OCPs, but encouraged her to establish with REGIONAL MAINTENANCE MANAGER. I called pharmacy who reports that pt has been taking this regularly and filling the medication regularly, so will refill x 3 month - leave it to Dr. Juárez after that - JMT * Telephone Encounter - Sonido Dorado LPN - 03/18/2022 2:41 PM EDT [facility] is requesting a refill on control. Last PE was 02/08/22 documented in this encounter Plan of Treatment Not on file documented as of this encounter Visit Diagnoses Diagnosis Oral contraceptive pill surveillance documented in this encounter Care Teams Blurb Writer Relationship Specialty Start Date End Date Ankita Juárez MD [address] [place] [address] [place] [address] PCP - General Pediatrics 05/06/18 08/28/23 documented as of this encounter
--- OUTSIDE RECORDS SUMMARY | 2024-12-19 11:54 | XMS_ITS | Clinical Summary ---
Author Organization [facility] Address [address] [place] [address] Phone Care Team Providers Care Skiff Operator Name Role Phone Unavailable Primary Care Provider Unavailabl e Allergies Active Allergy Reactions Criticality Noted Date Comments Fentanyl Medications ibuprofen 400 MG tablet 9 Active norgestimate-ethin yl estradiol (Tri-Sprintec) 0.18/0.215/0.25 MG-35 MCG per tabletIndications: Oral contraceptive pill surveillance Take 1 tablet by mouth once daily. 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 Shave removal performed and sent to pathology. Hemostatis with Janell. Will follow up pathology. Immunizations Immunization Administration Dates Next Due DTaP 5 10/05/2007, 5,02/17/2004,12/16,2003 H1N1 11/11/2009,09/23/2009 HPV Vaccine 9 Valent 06/20/2018,12/20/2017 Hep A, ped/adol 07/08/2016,12/10/2014 Hep B, ped/adol 05/18/2004,02/17/2004,2003 Hib (HbOC) 12/06/2004 Hib (PRP-T) 02/17/2004,2003,2003 IPV 10/05/2007, 4,2003,10/15 Influenza Split 09/04/2010 Influenza, injectable, quadr ivalent, preservative free 01/08/2020,07/31/2018,12/20/2017 Influenza, injectable, trivalent 11/11/2009 Influenza, intranasal, quadrivalent 12/02/2013 Influenza, intranasal, trivalent 08/24/2012,01/2011 MMR 08/30/2004 MMRV 10/05/2007 Meningococcal B Trumenba 02/08/2022,02/11/2021 Meningococcal Conj (Menactra) MCV4P 01/08/2020,0 07/08/2016 Pneumococcal Conjugate 12/06/2004,2003,2003,10/15 Tdap 09/09/2014 Varicella 08/30/2004 Family History Relation Name Status Comments Brother Remi Alive Brother: Alive and well Father Kris Alive Father: Alive a nd well Mother Nancy Alive Mother: Migrain es Other No family histo ry of Seizure disorder, No family history of Diabetes mellitus, No family history of Deafness, No family history of Autism, No family history of Obesity, No family history of Asthma, No family history of Developmental dislocation of hip, No family history of ADD/ADHD, No family history of Strabismus/amblyopia, No family history of Migraines, No family history of Elevated cholesterol, No family history of Sudden /DC under age 55 Sister Ben (twin) Alive Sister: Alive and well Social History Tobacco Use Types Packs/Day Years Used Date Smoking Tobacco: Never Smokeless Tobacco: Never Tobacco Cessation:Counseling Given: Yes Alcohol Use Standard Drinks/Week Comments No 0 [...] Orientation Bisexual 02/08/2022 11 :17 AM EDT Last Filed Vital Signs Vital Sign Reading Time Taken Comments Blood Pressure 111/76 02/08/2022 10:33 AM EDT Pulse 70 02/08/2022 10:33 AM EDT Temperature 36 ??C (96.8 ??F) 02/08/2022 10:33 AM EDT Respiratory Rate - - Oxygen Saturation - - Inhaled Oxygen Concentration - - Weight 59.1 kg (130 lb 3.2 oz) 02/08/2022 10:33 AM EDT Height 165.1 cm (5' 5 ) 02/08/2022 10:33 AM EDT Body Mass Index 21.67 02/08/2022 10:33 AM EDT Plan of Treatment Health Maintenance Due Date Last Done Comments Influenza Vaccines (#1) 2024 01/08/20 20, 07/31/2018, 12/20/2017, Additional history exists COVID-19 Vaccine (3 - 2023-2 5 season) 2024 06/23/2021, 06/02/2021 DTaP,Tdap,and Td Vaccines (7 - Td or Tdap) 09/09/2024 09/09/2014, 10/05/2007, 03/07/2005, Additional history exists Hepatitis B Vaccines Completed 05/18/2004, 02/17/2004, 2003 HIB Vaccines Completed 12/06/2004, 02/04, 2003, Additional history exists Pneumococcal Vaccine Completed 12/06/2004, 05/18/2004, 2003, Additional history exists IPV Vaccines Completed 10/05/2007, 02/04, 2003, Additional history exists MMR Vaccines Completed 10/05/2007, 08/30/2004 Varicella Vaccines Completed 10/05/2007, 08/30/2004 Hepatitis A Vaccines Completed 07/08/2016, 12/10/19 15 HPV Vaccines Completed 06/20/2018, 12/20/2017 Meningococcal Vaccine Completed 01/08/2020, 016 Men B Vaccine Completed 02/08/2022, 02/11/2021 Procedures * Due to [place] [employer] law, this organization might not be sharing sensitive test results. Procedure Name Priority Date/Time Associated Diagnosis Comments CHLAMYDIA AND GONORRHEA, AMPLIFIED Routine 02/08/2022 10:45 AM EDT Encounter for screening examination for chlamydial infection from Last 3 Months or Most Recently Relevant to Health Maintenance Results * Due to [place] [employer] law, this organization might not be sharing sensitive test results. * Chlamydia and Gonorrhoea, Amplified (02/08/2022 10:45 AM EDT) Chlamydia Trachomatis, DNA Probe NEGATIVE (NEG) [facility] Comment: No Chlamydia Trachomatis RNA detected in this patient's sample ? (REFERENCE RANGE/NORMAL VALUE: NOT DETECTED) ? Note: This test uses gas station supervisor- mediated amplification method to detect rRNA from C. Trachomatis URINE GC AMP PROBE NEGATIVE (NEG) [facility] Comment: No Neisseria Gonorrhoeae RNA detected in this patient's sample ? (REFERENCE RANGE/NORMAL VALUE: NOT DETECTED) ? NOTE: This test uses gas station supervisor-mediated amplification method to detect rRNA from N.Gonorrhoeae. A negative result does not preclude infection. In the case of a negative urine result, testing of an endocervical(female) or urethral (male) specimen is recommended if there is high clinical suspicion of infection. Due to very high sensitivity of Nucleic Acid Amplification Test, false positive results may occur. Therefore, specimen handling is extremely important. In patients in whom the disease is unlikely, additional sample for testing should be considered after an initial positive result. The performance characteristics of this test have not been evaluated in children. The Aptima Combo2 assay is not intended for the evaluation of suspected sexual abuse or for other medico-legal indications. The ordering provider should assess if the patient had consensual sex without risk of sexual abuse. Consult the [facility] if needed. Contact phone number . Therapeutic failure or success cannot be determined with the Aptima Combo2 assay since nucleic acid may persist following appropriate antimicrobial therapy. The Centers for Disease Control and Prevention (CDC) recommends confirmatory retesting using culture or a different nucleic acid amplification test when positive results occur, if indicated. Testing performed or reported by [facility], a Service of [facility], [facility] [place] [address] Newton Chavez MD, Academic Advising Director [facility]# [id number] Urine (Urine) 02/08/2022 10: 45 AM EDT 02/08/2022 3:58 PM EDT us Ankita Juárez MD LAB MICROBIOLOGY - GENERAL ORDERABLES Final Result [facility] from Last 3 Months or Most Recently Relevant to Health Maintenance
== END 2024-12-19 13:03 | disposition home or self-care (01) ==
PROVIDERS: PCP Internal Medicine; Visit Provider Advanced Practice Midwife
DX: Z78.9 Other specified health status (principal); N76.0 Acute vaginitis; B96.89 Other specified bacterial agents as the cause of diseases classified elsewhere; Z30.09 Encounter for other general counseling and advice on contraception
CPT/HCPCS: 99213